=== PATIENT | female | born 1950 | race Caucasian/White ===

== ENCOUNTER 2017-09-03 19:35 | Inpatient (IN) | payer MEDICARE ==
[2017-09-03 20:50] LABS: POC GLUCOSE 105 mg/dL (70-99)
[2017-09-03] MEDS ORDERED: MORPHINE IR 15 MG TABLET PO (22:45)
[2017-09-03] MEDS: IV NORMAL SALINE 1000ML BAG 1,000 ML IV (22:56)
[2017-09-03] MEDS ORDERED: ALBUTEROL SULFATE 2.5 MG/3 ML NEBU. NEB (23:45)
[2017-09-04] MEDS: MORPHINE SULFATE 4 MG/ML DISP.SYRIN. IV (00:40)
[2017-09-04 05:47] LABS: ADD MAN DIFF? NO
[2017-09-04 05:59] LABS: BASO # 0.1 x10^3/uL (0.0-0.2); BASO % 2 % (0-3); EOS # 0.2 x10^3/uL (0.0-0.7); EOS % 3 % (0-3); HEMATOCRIT 38.5 % (36.0-47.0); HEMOGLOBIN 12.6 g/dL (12.0-15.5); LYMPH % 34 % (24-48); MEAN CORPUSCULAR HEMOGLOBIN 32 pg (25-35); MEAN CORPUSCULAR HGB CONC 33 g/dL (31-37); MEAN CORPUSCULAR VOLUME 97 fL (79-100); MONO # 0.6 x10^3/uL (0.0-1.1); MONO % 10 % (0-9); NEUT % 51 % (31-73); PLATELET COUNT 243 x10^3/uL (140-400); RED BLOOD COUNT 3.96 x10^6/uL (3.50-5.40); RED CELL DISTRIBUTION WIDTH 13.4 % (11.5-14.5); WHITE BLOOD COUNT 5.9 x10^3/uL (4.0-11.0)
[2017-09-04 07:17] LABS: ALBUMIN 3.2 g/dL (3.4-5.0); ALK PHOS 65 U/L (46-116); ALT (SGPT) 34 U/L (14-59); ANION GAP 13 (6-14); AST (SGOT) 25 U/L (15-37); BLOOD UREA NITROGEN 13 mg/dL (7-20); BUN/CREATININE RATIO 13 (6-20); CALCIUM 8.2 mg/dL (8.5-10.1); CARBON DIOXIDE 22 mmol/L (21-32); CHLORIDE 108 mmol/L (98-107); GFR 55.1; GLUCOSE 87 mg/dL (70-99); POTASSIUM 3.9 mmol/L (3.5-5.1); SODIUM 143 mmol/L (136-145); TOTAL BILIRUBIN 0.3 mg/dL (0.2-1.0); TOTAL PROTEIN 6.5 g/dL (6.4-8.2)
[2017-09-04 07:40] LABS: POC GLUCOSE 91 mg/dL (70-99)
[2017-09-04] MEDS ORDERED: ALPRAZolam 0.5 MG TABLET PO (08:15)
[2017-09-04] MEDS ORDERED: SUMAtriptan SUCCINATE 100 MG TABLET PO (08:15)
[2017-09-04] MEDS ORDERED: NON FORMULARY ITEM (Albuterol Sulfate (Proventil Hfa Inhaler) 2 PUFF) IH (08:15)
[2017-09-04] MEDS ORDERED: ALBUTEROL SULFATE 2.5 MG/3 ML NEBU. NEB (09:15)
[2017-09-04] MEDS: PANTOPRAZOLE IV PUSH 40 MG VIAL. IVP (09:58)
[2017-09-04] MEDS: PANTOPRAZOLE SODIUM IV DRIP 80 MG in IV NORMAL SALINE 100ML 100 ML IV (09:59)
[2017-09-04] MEDS: LEVOTHYROXINE 88 MCG TABLET PO (10:00)
[2017-09-04] MEDS: CHOLECALCIFEROL (VITAMIN D3) 1,000 UNIT TABLET PO (10:01)
[2017-09-04] MEDS: FLUDROCORTISONE 0.1 MG TABLET PO (10:01)
[2017-09-04] MEDS: cycloSPORINE 0.05% OPTH 1 DROP DROPERETTE OU (10:03)
[2017-09-04] MEDS: IV NORMAL SALINE 1000ML BAG 1,000 ML IV (10:04)
[2017-09-04 11:29] LABS: POC GLUCOSE 118 mg/dL (70-99)
[2017-09-04 11:51] LABS: FECAL OB PT NEGATIVE (NEG); NEG OBC FOB NEG; POS OBC FOB POS
[2017-09-04] MEDS ORDERED: LACTOBACILLUS RHAMNOSUS GG 1 CAPSULE. PO (21:00)
[2017-09-04] MEDS ORDERED: ATORVASTATIN CALCIUM 10 MG TABLET. PO (21:00)
== END 2017-09-04 16:12 | disposition home or self-care (01) | DRG 378 ==
LOC: 4 NORTH 19:35
PROVIDERS: Internal Medicine
DX: K57.93 Diverticulitis of intestine, part unspecified, without perforation or abscess with bleeding (principal); Z68.41 Body mass index [BMI] 40.0-44.9, adult; E03.9 Hypothyroidism, unspecified; E66.9 Obesity, unspecified; E78.5 Hyperlipidemia, unspecified; J45.909 Unspecified asthma, uncomplicated; F41.9 Anxiety disorder, unspecified; Z79.82 Long term (current) use of aspirin; Z87.11 Personal history of peptic ulcer disease; Z88.0 Allergy status to penicillin; Z88.8 Allergy status to other drugs, medicaments and biological substances; Z91.041 Radiographic dye allergy status; Z91.040 Latex allergy status
CPT/HCPCS: 36415; 80053; 82274; 82962; 85025; C9113; J2270; J3490; J7030

== ENCOUNTER → 2017-10-22 | Day surgery (SDC) | payer MEDICARE ==
[~2017-10-22] MED LIST: LIDOCAINE 1% PF 2 ML VIAL. ID; LIDOCAINE 2% 100 MG/5 ML SYRINGE.; ONDANSETRON PF 4 MG/2 ML VIAL. IV; PROPOFOL 20 ML IV; fentaNYL PF VIAL 100 MCG/2 ML VIAL IV
[2017-10-22] MEDS: IV RINGERS,LACTATED 1000ML 1,000 ML IV ×2 (08:29)
== END | disposition home or self-care (01) ==
LOC: ENDOS 07:44
DX: K64.8 Other hemorrhoids (principal); K57.30 Diverticulosis of large intestine without perforation or abscess without bleeding; E03.9 Hypothyroidism, unspecified; E11.9 Type 2 diabetes mellitus without complications; E78.5 Hyperlipidemia, unspecified; J44.9 Chronic obstructive pulmonary disease, unspecified; Z79.82 Long term (current) use of aspirin; M19.90 Unspecified osteoarthritis, unspecified site; Z83.3 Family history of diabetes mellitus; Z86.010 Personal history of colon polyps; Z87.891 Personal history of nicotine dependence; Z90.49 Acquired absence of other specified parts of digestive tract; Z90.710 Acquired absence of both cervix and uterus; Z88.0 Allergy status to penicillin; Z88.2 Allergy status to sulfonamides; Z98.890 Other specified postprocedural states; Z88.5 Allergy status to narcotic agent; Z91.041 Radiographic dye allergy status; Z91.040 Latex allergy status; Z72.89 Other problems related to lifestyle; Z82.49 Family history of ischemic heart disease and other diseases of the circulatory system; Z79.899 Other long term (current) drug therapy
CPT/HCPCS: 45378; J2704

== ENCOUNTER → 2018-06-20 | Outpatient (CLI) | payer MEDICARE ==
[2017-10-22 09:48] VITALS: BP 152/82
[~2018-06-20] MED LIST changes: +ALPR0.5T6 PO; +ASPI-630 PO; +ATOR10TA60 PO; +CHOL10003 PO; +CYCL1DRO EACHEYE; +FLUD0.1T PO; +LEVO88TA4 PO; -LIDOCAINE 1% PF 2 ML VIAL. ID; -LIDOCAINE 2% 100 MG/5 ML SYRINGE.; +METR500T PO; -ONDANSETRON PF 4 MG/2 ML VIAL. IV; -PROPOFOL 20 ML IV; +PROVENTIL HFA6.7 GM IH; +SUMA100T4 PO; -fentaNYL PF VIAL 100 MCG/2 ML VIAL IV
--- NOTE | 2018-06-20 12:43 | KCIC ---
MRI right ankle without contrast dated 06/20/2018 11:00 AM Indication: Right ankle pain history of fracture with hardware removal 12/2016. New injury with pain and swelling after fall one week ago. Comparison: No comparison is available. Technique: Routine multiplanar multisequence imaging performed. No contrast administered. Findings: There is a linear band of T2 hyperintense signal within the marrow of the distal tibia which could be related to defect from prior intramedullary nailing. No cortical destruction or periostitis. Bone marrow signal is otherwise homogeneous. There is increased signal and thickening of the distal Achilles tendon at its calcaneal attachment. No full-thickness tear. No significant inflammatory changes along the Achilles peritenon. Plantar fascia is intact. Flexor and extensor tendons are intact. No abnormality of the peroneus longus or peroneus brevis. Anterior talofibular ligament and posterior talofibular ligaments are intact. Calcaneofibular ligament and tibiofibular ligaments are intact. No apparent abnormality of the deltoid complex. Visualized soft tissue structures unremarkable. No subcutaneous or intramuscular edema. No fluid collection. No ankle joint effusion. IMPRESSION: 1. 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 No full-thickness tear identified. 2. Linear T2 hyperintense defect within the marrow of the distal tibia is likely related to prior intramedullary nail placement. Correlate clinically. 3. Otherwise no evidence of internal derangement. Electronically signed by: Manuel Fuller MD (06/20/2018 12:41 PM) [id number]
== END | disposition home or self-care (01) ==
LOC: KCIC MRI 10:48
PROVIDERS: ATTEND Physician Assistant
DX: S89.391D Other physeal fracture of lower end of right fibula, subsequent encounter for fracture with routine healing (principal); M76.61 Achilles tendinitis, right leg; X58.XXXD Exposure to other specified factors, subsequent encounter
CPT/HCPCS: 73721

== ENCOUNTER → 2019-07-21 | Day surgery (SDC) | payer MEDICARE ==
[~2019-07-21] MED LIST changes: +AZEL137S3 NS; +CETI10TA22 PO; +FLUT1DIS3 IH; +IV RINGERS,LACTATED 1000ML 1,000 ML IV SCH; +LIDOCAINE 1% PF 2 ML VIAL. ID PRN; +LIDOCAINE 2% PF 5 ML VIAL. ONE; +LORA10TA68 PO; +MONT10TA49 PO; +ONDANSETRON PF 4 MG/2 ML VIAL. IV PRN; +PROPOFOL 20 ML IV ONE; +PROVENTIL HFA6.7 G2 INH; +TRAM-48 PO; +fentaNYL PF VIAL 100 MCG/2 ML VIAL IV PRN
[2019-07-21 11:26] VITALS: BP 173/74
== END ==
LOC: ENDOS 09:03
PROVIDERS: ATTEND Internal Medicine Gastroenterology
DX: R11.2 Nausea with vomiting, unspecified (principal); K29.50 Unspecified chronic gastritis without bleeding; K44.9 Diaphragmatic hernia without obstruction or gangrene; K26.9 Duodenal ulcer, unspecified as acute or chronic, without hemorrhage or perforation; K21.9 Gastro-esophageal reflux disease without esophagitis; F41.9 Anxiety disorder, unspecified; J44.9 Chronic obstructive pulmonary disease, unspecified; F32.9 Major depressive disorder, single episode, unspecified; K57.30 Diverticulosis of large intestine without perforation or abscess without bleeding; F15.90 Other stimulant use, unspecified, uncomplicated; Z88.0 Allergy status to penicillin; Z88.6 Allergy status to analgesic agent; Z88.1 Allergy status to other antibiotic agents; Z88.3 Allergy status to other anti-infective agents; Z88.5 Allergy status to narcotic agent; Z91.040 Latex allergy status; Z87.39 Personal history of other diseases of the musculoskeletal system and connective tissue; Z72.89 Other problems related to lifestyle; Z87.891 Personal history of nicotine dependence; Z79.82 Long term (current) use of aspirin; Z90.49 Acquired absence of other specified parts of digestive tract; Z90.710 Acquired absence of both cervix and uterus; Z98.890 Other specified postprocedural states
CPT/HCPCS: 43235; J2001; J2704